=== PATIENT | female | born 1995 | race Caucasian/White ===

== ENCOUNTER 2017-08-02 20:33 | Emergency (ER) | payer OTHER ==
[~2017-08-02] VITALS: Ht 157.5 cm; Wt 61.2 kg
--- NOTE | 2017-08-02 20:45 | ER Report ---
History and Physical Time Seen By MD: 20:45 Hx. of Stated Complaint: N/V since saturday. General abdominal pain, RLQ after eating. HPI/ROS CHIEF COMPLAINT: abdominal pain HISTORY OF PRESENT ILLNESS: This is a 21 year old female. She is having abdominal pain. Has been having worsening pain over several days. Pain is in the right upper quadrant and does radiate around to the right flank. Worsens with eating or drinking. Nothing seems to make it worse or better. No fevers or chills. Family history of gall bladder disease. No problem with urination. Having some loose stools. No chest pain. No shortness of breath. Allergies: Coded Allergies: Sulfa (Sulfonamide Antibiotics) (Verified Adverse Reaction, Intermediate, sick to stomach, dizziness, 08/02/17) Home Meds Active Scripts Ondansetron (ZOFRAN ODT) 4 Mg Tab.rapdis, 4 MG PO Q6H Y for NAUSEA/VOMITING, # 20 TAB.JENNIFER 0 Refills Prov:MAGDIEL YAO MD 08/02/17 Hydrocodone Bit/Acetaminophen (HYDROCODON-ACETAMINOPHEN 5-325) 1 Each Tablet, 1 EACH PO Q4H Y for PAIN, #12 TAB 0 Refills Prov:MAGDIEL YAO MD 08/02/17 Cephalexin Monohydrate (CEPHALEXIN) 500 Mg Cap, 500 MG PO Q6H, #20 CAP 0 Refills Prov:MAGDIEL YAO MD 08/02/17 Reported Medications Pantoprazole Sodium (PANTOPRAZOLE SODIUM) 40 Mg Tablet.dr, 40 MG PO QDAY, TAB.SR 08/02/17 Buspirone Hcl (BUSPIRONE HCL) 15 Mg Tablet, 15 MG PO QDAY, #10 TAB 08/02/17 Norgestimate-Ethinyl Estradiol (SPRINTEC) 1 Each Tablet, 1 EACH PO QDAY 08/02/17 Quetiapine Fumarate (QUETIAPINE FUMARATE) 25 Mg Tablet, 50 MG PO HS 08/02/17 Fluvoxamine Maleate (FLUVOXAMINE MALEATE) 100 Mg Tablet, 200 MG PO BID 08/02/17 Reviewed Nurses Notes: Yes Constitutional Vital Sign - Last 24 Hours 08/02/17 08/02/17 08/02/17 08/02/17 20:38 20:40 20:48 21:00 Temp 99.0 Pulse 106 92 Resp 14 B/P (MAP) 116/85 116/85 (95) 112/74 (87) Pulse Ox 94 95 O2 Delivery Room Air 08/02/17 08/02/17 08/02/17 08/02/17 21:03 21:08 21:23 21:30 Pulse 89 89 92 B/P (MAP) 113/78 (90) Pulse Ox 94 96 94 08/02/17 08/02/17 08/02/17 08/02/17 21:38 21:53 22:00 22:05 Pulse 89 91 98 B/P (MAP) 113/69 (84) Pulse Ox 95 95 95 08/02/17 08/02/17 08/02/17 08/02/17 22:10 22:15 22:20 22:25 Pulse 90 80 85 82 Pulse Ox 95 94 95 95 08/02/17 08/02/17 08/02/17 08/02/17 22:30 22:35 22:40 22:45 Pulse 88 83 83 80 B/P (MAP) 106/75 (85) Pulse Ox 96 95 95 94 08/02/17 08/02/17 08/02/17 08/02/17 22:50 22:55 23:00 23:20 Pulse 83 80 79 95 B/P (MAP) 104/66 (79) Pulse Ox 94 94 94 96 08/02/17 08/02/17 08/02/17 23:25 23:30 23:35 Pulse 80 81 79 B/P (MAP) 113/72 (86) Pulse Ox 95 95 95 Physical Exam General Appearance: The patient is alert. Pain does cause mild acute distress. Eyes: Pupils are equal, round. No pallor, injection or icterus. ENT: Mucous membranes are moist. Normal oral mucosa. Posterior oropharynx is normal. Neck: Supple and non tender. Respiratory: Lungs are clear to auscultation. Cardiovascular: Regular rate and rhythm. No murmurs, gallops or rubs. Gastrointestinal: Abdomen has pain, mainly right upper abdomen. Nondistended. No rebound or guarding. Normal active bowel sounds. No costovertebral angle tenderness with percussion. Neurological: Alert and oriented x3. No focal neurologic deficits Skin: Warm and dry. No rashes. Musculoskeletal: Extremities are nontender. Full range of motion. No tenderness in palpation of the thoracic and lumbar spine. DIFFERENTIAL DIAGNOSIS: After history and physical exam, differential diagnosis was considered for abdominal pain including but not limited to appendicitis, cholecystitis, gastritis and urinary tract infection. Medical Decision Making Data Points Result Diagram: 08/02/17205408/02/172054 Laboratory Hematology Test 08/02/17 20:35 08/02/17 20:55 Urine Color Karina Urine Clarity Cloudy Urine pH 5.0 pH (4.8-9.5) Urine Specific [place] 1.031 Urine Protein 30 mg/dL (NEGATIVE) Urine Glucose (UA) Negative mg/dL (NEGATIVE) Urine Ketones 80 mg/dL (NEGATIVE) Urine Blood Moderate (NEGATIVE) Urine Nitrite Negative (NEGATIVE) Urine Bilirubin Negative (NEGATIVE) Urine Urobilinogen 4.0 mg/dL (0.2-1.9) Urine Leukocyte Esterase Moderate (NEGATIVE) Urine RBC 3 /HPF (0-2/HPF) Urine WBC 107 /HPF (0-5/HPF) Urine Squamous Epithelial Cells Many /LPF (</=FEW) Urine Bacteria Few /HPF (NONE-FEW) Urine Hyaline Casts Few /LPF (NONE-FEW) Urine Mucus Few /HPF (NONE-FEW) Red Blood Count 5.36 M/uL (4.17-5.56) Mean Corpuscular Volume 82.3 fL (80.0-96.0) Mean Corpuscular Hemoglobin 28.6 pg (26.0-33.0) Mean Corpuscular Hemoglobin Concent 34.8 g/dL (32.0-36.0) Red Cell Distribution Width 13.5 % (11.5-14.5) Mean Platelet Volume 7.7 fL (7.2-11.1) Neutrophils (%) (Auto) 78.0 % (39.4-72.5) Lymphocytes (%) (Auto) 14.7 % (17.6-49.6) Monocytes (%) (Auto) 6.1 % (4.1-12.4) Eosinophils (%) (Auto) 0.5 % (0.4-6.7) Basophils (%) (Auto) 0.7 % (0.3-1.4) Nucleated RBC Relative Count (auto) 0.2 /100WBC Neutrophils # (Auto) 4.8 K/uL (2.0-7.4) Lymphocytes # (Auto) 0.9 K/uL (1.3-3.6) Monocytes # (Auto) 0.4 K/uL (0.3-1.0) Eosinophils # (Auto) 0.0 K/uL (0.0-0.5) Basophils # (Auto) 0.0 K/uL (0.0-0.1) Nucleated RBC Absolute Count (auto) 0.01 K/uL Sodium Level 136 mmol/L (137-145) Potassium Level 3.0 mmol/L (3.5-5.0) Chloride Level 101 mmol/L (98-107) Carbon Dioxide Level 23 mmol/L (22-31) Blood Urea Nitrogen 7 mg/dl (7-18) Creatinine 0.80 mg/dl (0.52-1.04) Glomerular Filtration Rate Calc > 60.0 Random Glucose 105 mg/dl (75-110) Calcium Level 8.6 mg/dl (8.4-10.2) Total Bilirubin 0.4 mg/dl (0.2-1.3) Aspartate Amino Transf (AST/SGOT) 27 U/L (0-35) Alanine Aminotransferase (ALT/SGPT) 44 U/L (0-56) Alkaline Phosphatase 67 U/L (0-126) Total Protein 7.1 gm/dl (6.3-8.2) Albumin 3.8 g/dl (3.5-5.0) Amylase Level 92 U/L (0-110) Lipase 112 U/L (23-300) Human Chorionic Gonadotropin, Qual Negative (NEGATIVE) Chemistry Test 08/02/17 20:35 08/02/17 20:55 Urine Color Karina Urine Clarity Cloudy Urine pH 5.0 pH (4.8-9.5) Urine Specific [place] 1.031 Urine Protein 30 mg/dL (NEGATIVE) Urine Glucose (UA) Negative mg/dL (NEGATIVE) Urine Ketones 80 mg/dL (NEGATIVE) Urine Blood Moderate (NEGATIVE) Urine Nitrite Negative (NEGATIVE) Urine Bilirubin Negative (NEGATIVE) Urine Urobilinogen 4.0 mg/dL (0.2-1.9) Urine Leukocyte Esterase Moderate (NEGATIVE) Urine RBC 3 /HPF (0-2/HPF) Urine WBC 107 /HPF (0-5/HPF) Urine Squamous Epithelial Cells Many /LPF (</=FEW) Urine Bacteria Few /HPF (NONE-FEW) Urine Hyaline Casts Few /LPF (NONE-FEW) Urine Mucus Few /HPF (NONE-FEW) White Blood Count 6.1 k/uL (4.5-11.0) Red Blood Count 5.36 M/uL (4.17-5.56) Hemoglobin 15.4 g/dL (12.0-16.0) Hematocrit 44.1 % (34.0-47.0) Mean Corpuscular Volume 82.3 fL (80.0-96.0) Mean Corpuscular Hemoglobin 28.6 pg (26.0-33.0) Mean Corpuscular Hemoglobin Concent 34.8 g/dL (32.0-36.0) Red Cell Distribution Width 13.5 % (11.5-14.5) Platelet Count 233 K/uL (150-450) Mean Platelet Volume 7.7 fL (7.2-11.1) Neutrophils (%) (Auto) 78.0 % (39.4-72.5) Lymphocytes (%) (Auto) 14.7 % (17.6-49.6) Monocytes (%) (Auto) 6.1 % (4.1-12.4) Eosinophils (%) (Auto) 0.5 % (0.4-6.7) Basophils (%) (Auto) 0.7 % (0.3-1.4) Nucleated RBC Relative Count (auto) 0.2 /100WBC Neutrophils # (Auto) 4.8 K/uL (2.0-7.4) Lymphocytes # (Auto) 0.9 K/uL (1.3-3.6) Monocytes # (Auto) 0.4 K/uL (0.3-1.0) Eosinophils # (Auto) 0.0 K/uL (0.0-0.5) Basophils # (Auto) 0.0 K/uL (0.0-0.1) Nucleated RBC Absolute Count (auto) 0.01 K/uL Glomerular Filtration Rate Calc > 60.0 Calcium Level 8.6 mg/dl (8.4-10.2) Total Bilirubin 0.4 mg/dl (0.2-1.3) Aspartate Amino Transf (AST/SGOT) 27 U/L (0-35) Alanine Aminotransferase (ALT/SGPT) 44 U/L (0-56) Alkaline Phosphatase 67 U/L (0-126) Total Protein 7.1 gm/dl (6.3-8.2) Albumin 3.8 g/dl (3.5-5.0) Amylase Level 92 U/L (0-110) Lipase 112 U/L (23-300) Human Chorionic Gonadotropin, Qual Negative (NEGATIVE) Urinalysis Test 08/02/17 20:35 Urine Color Karina Urine Clarity Cloudy Urine pH 5.0 pH (4.8-9.5) Urine Specific [place] 1.031 Urine Protein 30 mg/dL (NEGATIVE) Urine Glucose (UA) Negative mg/dL (NEGATIVE) Urine Ketones 80 mg/dL (NEGATIVE) Urine Blood Moderate (NEGATIVE) Urine Nitrite Negative (NEGATIVE) Urine Bilirubin Negative (NEGATIVE) Urine Urobilinogen 4.0 mg/dL (0.2-1.9) Urine Leukocyte Esterase Moderate (NEGATIVE) Urine RBC 3 /HPF (0-2/HPF) Urine WBC 107 /HPF (0-5/HPF) Urine Squamous Epithelial Cells Many /LPF (</=FEW) Urine Bacteria Few /HPF (NONE-FEW) Urine Hyaline Casts Few /LPF (NONE-FEW) Urine Mucus Few /HPF (NONE-FEW) EKG/Imaging Imaging EXAMINATION: Right upper quadrant abdominal ultrasound HISTORY: Right upper quadrant pain. COMPARISON: None. FINDINGS: Liver: Normal hepatic echotexture. No focal liver lesions identified. Antegrade flow is visualized in the main portal vein. Gallbladder: The gallbladder is distended up to 3.5 cm in diameter. No visualized gallstones or sludge. No gallbladder wall thickening or pericholecystic fluid. The funeral professional indicated a positive sonographic Olmstead sign. Bile Ducts: No biliary ductal dilatation. The common duct measures 4 mm. Pancreas: The head and body of the pancreas are moderately well visualized and unremarkable where seen. Right kidney: Normal echogenicity of the right kidney. The renal cortical parenchyma is maintained. No hydronephrosis. The right kidney measures 9.6 cm in length. Aorta: Patent and normal in caliber. IVC: Patent. Ascites: None. IMPRESSION: 1. The gallbladder is moderately distended. Otherwise normal ultrasound appearance of the gallbladder, but with a reported positive sonographic Olmstead sign. This should be correlated with other clinical and or laboratory evidence for cholecystitis. 2. No bile duct dilatation. 3. Remainder unremarkable. Report Dictated By: Antolin Olivo MD at 08/02/2017 10:32 PM COMPUTED TOMOGRAPHY ABDOMEN AND PELVIS WITH INTRAVENOUS CONTRAST DATE OF EXAM: 08/02/2017 10:17 PM INDICATION: Right abdominal and flank pain. COMPARISON: Same-day ultrasound. TECHNIQUE: Contrast enhanced abdomen and pelvis CT performed during the injection of 75 ml of Isovue 370. Sagittal and coronal reconstructions were performed. One of the following dose optimization techniques was utilized in the performance of this exam: Automated exposure control; adjustment of the mA and/or kV according to the patient's size; or use of an iterative reconstruction technique. Specific details can be referenced in the facility's radiology CT exam operational policy. FINDINGS: Lung bases: Minimal atelectasis. Liver and hepatic vasculature: Normal. Gallbladder and bile ducts: Distended gallbladder with no evidence of acute inflammation. Spleen: Normal. Pancreas: Normal. Adrenals: Normal. Kidneys, ureters and bladder: Normal. Retroperitoneum and aorta: Normal. GI tract, mesentery and peritoneum: Normal, including normal appendix. Uterus and adnexa: Retroflexed uterus, otherwise unremarkable. Bones and soft tissues: No acute abnormality or suspicious lesion. IMPRESSION: No acute abnormality. Report Dictated By: Aron Aggarwal MD at 08/02/2017 11:31 PM ED Course/Re-evaluation Clinical Indication for ER IV: Hydration, IV Access ED Course Based on location of the pain, Gallbladder ultrasound was ordered initially. Pain controlled with Fentanyl 50mcg IV. Zofran 4mg IV given for nausea. Ultrasound negative other than slight increase in gallbladder size. CT scan obtained and was negative as well. Urinalysis showed changes that could represent contamination versus infection and a culture was ordered. CBC normal and CMP showed a mild decrease potassium and discussed these finding with the patient. She will start on Keflex and use Lortab and Zofran for pain and nausea. Follow-up with Dr. Figueroa for further evaluation of the gallbladder. Decision to Disposition Date: Aug 02, 2017 Decision to Disposition Time: 23:51 Depart Departure Latest Vital Signs Vital Signs Date Time Temp Pulse Resp B/P (MAP) Pulse Ox O2 Delivery O2 Flow Rate FiO2 08/02/17 23:35 79 95 08/02/17 23:30 113/72 (86) 08/02/17 20:38 99.0 14 Room Air Impression: Primary Impression: Abdominal pain Condition: Improved Disposition: HOME OR SELF-CARE New Scripts Ondansetron (ZOFRAN ODT) 4 Mg Tab.rapdis 4 MG PO Q6H Y for NAUSEA/VOMITING, #20 TAB.JENNIFER 0 Refills Prov: MAGDIEL YAO MD 08/02/17 Hydrocodone Bit/Acetaminophen (HYDROCODON-ACETAMINOPHEN 5-325) 1 Each Tablet 1 EACH PO Q4H Y for PAIN, #12 TAB 0 Refills Prov: MAGDIEL YAO MD 08/02/17 Cephalexin Monohydrate (CEPHALEXIN) 500 Mg Cap 500 MG PO Q6H, #20 CAP 0 Refills Prov: MAGDIEL YAO MD 08/02/17 Patient Instructions: Abdominal Pain (ED) Additional Instructions: Lortab 5/325, one every 4 hours as needed for pain. Zofran 4mg, one every 6 hours as needed for nausea. Low fat diet. Call Dr. Figueroa for further evaluation as an outpatient. Return to the ER for fevers/chills, severe nausea and vomiting, severe pain. Problem Qualifiers Primary Impression: Abdominal pain Abdominal location: right upper quadrant Qualified Codes: R10.11 - Right upper quadrant pain MAGDIEL YAO MD Aug 02, 2017 20:45
[2017-08-02] MEDS ORDERED: QUET25TA PO (20:46)
[2017-08-02] MEDS ORDERED: FLUV100T21 PO (20:46)
[2017-08-02] MEDS ORDERED: BUSP15TA69 PO (20:47)
[2017-08-02] MEDS ORDERED: NORG1TAB74 PO (20:47)
[2017-08-02] MEDS ORDERED: PANT40TA65 PO (20:48)
[2017-08-02] MEDS ORDERED: NS(*) 0.9% 1000 ML BAG 1,000 ML IV ONE (20:51)
[2017-08-02] MEDS ORDERED: ONDANSETRON 4 MG/2 ML VIAL IVP ONE (20:55)
[2017-08-02] MEDS ORDERED: fentaNYL CITR 100 MCG/2 ML AMP IVP ONE (20:55)
[2017-08-02 21:05] LABS: PLATELET COUNT, AUTOMATED 233 K/uL (150-450)
[2017-08-02] MEDS ORDERED: IOPAMIDOL 76% 75 ML INFUS BTL 75 ML ONE (22:28)
[2017-08-02] MEDS ORDERED: NS 0.9% 20 ML SDV 40 ML ONE (22:28)
--- NOTE | 2017-08-02 22:39 | RADIOLOGY IMAGING REPORT ---
FACILITY: [facility] - [place] PATIENT NAME: Luis Romero : 1995 MR: [id number] V: [id number] EXAM DATE: ORDERING PHYSICIAN: MAGDIEL YAO TECHNOLOGIST: Location: [facility] [place] Patient: Luis Romero : 1995 Visit/Account:[id number] Date of Sevice: 08/02/2017 EXAMINATION: Right upper quadrant abdominal ultrasound HISTORY: Right upper quadrant pain. COMPARISON: None. FINDINGS: Liver: Normal hepatic echotexture. No focal liver lesions identified. Antegrade flow is visualized in the main portal vein. Gallbladder: The gallbladder is distended up to 3.5 cm in diameter. No visualized gallstones or slud ge. No gallbladder wall thickening or pericholecystic fluid. The cylinder press operator apprentice indicated a positive son ographic Olmstead sign. Bile Ducts: No biliary ductal dilatation. The common duct measures 4 mm. Pancreas: The head and body of the pancreas are moderately well visualized and unremarkable where se en. Right kidney: Normal echogenicity of the right kidney. The renal cortical parenchyma is maintained. N o hydronephrosis. The right kidney measures 9.6 cm in length. Aorta: Patent and normal in caliber. IVC: Patent. Ascites: None. IMPRESSION: 1. The gallbladder is moderately distended. Otherwise normal ultrasound appearance of the gallbladder , but with a reported positive sonographic Olmstead sign. This should be correlated with other clinical and or laboratory evidence for cholecystitis. 2. No bile duct dilatation. 3. Remainder unremarkable. Report Dictated By: Antolin Olivo MD at 08/02/2017 10:32 PM Report E-Signed By: Antolin Olivo MD at 08/02/2017 10:35 PM WSN:[id number]
--- NOTE | 2017-08-02 23:39 | RADIOLOGY IMAGING REPORT ---
[place] [facility] [place] Rom[place] : 1995 MR: [id number] V: [id number] EXAM DATE: ORDERING PHYSICIAN: MAGDIEL YAO TECHNOLOGIST: Location: [facility] - [place] Patient: Luis Romero : 1995 Visit/Account:[id number] Date of Sevice: 08/02/2017 COMPUTED TOMOGRAPHY ABDOMEN AND PELVIS WITH INTRAVENOUS CONTRAST DATE OF EXAM: 08/02/2017 10:17 PM INDICATION: Right abdominal and flank pain. COMPARISON: Same-day ultrasound. TECHNIQUE: Contrast enhanced abdomen and pelvis CT performed during the injection of 75 ml of Isovue 370. Sagittal and coronal reconstructions were performed. One of the following dose optimization te chniques was utilized in the performance of this exam: Automated exposure control; adjustment of the mA and/or kV according to the patient's size; or use of an iterative reconstruction technique. [facility] details can be referenced in the facility's radiology CT exam operational policy. FINDINGS: Lung bases: Minimal atelectasis. Liver and hepatic vasculature: Normal. Gallbladder and bile ducts: Distended gallbladder with no evidence of acute inflammation. Spleen: Normal. Pancreas: Normal. Adrenals: Normal. Kidneys, ureters and bladder: Normal. Retroperitoneum and aorta: Normal. GI tract, mesentery and peritoneum: Normal, including normal appendix. Uterus and adnexa: Retroflexed uterus, otherwise unremarkable. Bones and soft tissues: No acute abnormality or suspicious lesion. IMPRESSION: No acute abnormality. Report Dictated By: Aron Aggarwal MD at 08/02/2017 11:31 PM Report E-Signed By: Aron Aggarwal MD at 08/02/2017 11:35 PM WSN:[id number]
[2017-08-02] MEDS ORDERED: ONDANSETRON 4 MG ODT TH SL ONE (23:55)
[2017-08-02] MEDS ORDERED: CEPH500C24 PO (23:55)
[2017-08-02] MEDS ORDERED: ONDA4TAB PO (23:55)
[2017-08-02] MEDS ORDERED: ACET/HYDROC 5/325MG TH ER ONLY 2 TAB/BOTTLE PO ONE (23:55)
[2017-08-02] MEDS ORDERED: LOR5/325 PO (23:55)
[2017-08-02] MEDS ORDERED: CEPHALEXIN 500 MG CAP TH 2 CAP/BOTTLE PO ONE (23:55)
[2017-08-03] VITALS: BP 110/72
== END 2017-08-03 00:03 | disposition home or self-care (01) ==
LOC: ER 21:07
DX: R10.11 Right upper quadrant pain (principal)
CPT/HCPCS: 74177; 76705; 81001; 82150; 83690; 84703; 85025; 87088; 96361; 96374; 96375; 99284; J2405; J3010; J7030; J7050; Q9967; S0119; 82040; 82247; 82310; 82374; 82435; 82565; 82947; 84075; 84132; 84155; 84295; 84450; 84460; 84520

== ENCOUNTER → 2018-09-03 | Outpatient (CLI) | payer OTHER ==
[~2018-09-03] MED LIST: BUSP15TA69 PO; CEPH500C24 PO; FLUV100T21 PO; LOR5/325 PO; NORG1TAB74 PO; ONDA4TAB PO; PANT40TA65 PO; QUET25TA PO
== END ==
LOC: LAB 09:03
PROVIDERS: ATTEND Obstetrics & Gynecology
DX: O26.851 Spotting complicating pregnancy, first trimester (principal)
CPT/HCPCS: 36415; 84702; 86900; 86901

== ENCOUNTER → 2018-09-05 | Outpatient (CLI) | payer OTHER | LOC: LAB 07:54 | PROVIDERS: ATTEND Obstetrics & Gynecology | DX: O26.851 Spotting complicating pregnancy, first trimester (principal) | CPT/HCPCS: 36415; 84702 ==